=== PATIENT | female | born 1960 | race Caucasian/White ===

== ENCOUNTER → 2017-01-20 | Outpatient (CLI) | payer OTHER ==
--- NOTE | 2017-01-20 18:14 | XR ---
EXAMINATION TYPE: XR chest 2V DATE OF EXAM: 01/20/2017 6:04 PM COMPARISON: NONE HISTORY: Chest pain TECHNIQUE: Frontal and lateral views of the chest are obtained. FINDINGS: Heart and mediastinum are within normal limits. Lungs are clear. Costophrenic angles are c lear. There are no hilar masses. The bony thorax appears intact. IMPRESSION: No active cardiopulmonary disease.
== END ==
LOC: RADXRMAIN 17:49
PROVIDERS: ATTEND Family Medicine
DX: M94.0 Chondrocostal junction syndrome [Tietze] (principal)
CPT/HCPCS: 71020

== ENCOUNTER → 2017-01-22 | Outpatient (CLI) | payer OTHER ==
--- NOTE | 2017-01-23 08:18 | MM ---
Reason for exam: follow-up at short interval from prior study. Last mammogram was performed 6 months ago. History: Patient is postmenopausal. Family history of breast cancer in sister at age 56. Benign left breast aspiration of the left breast, February 10, 2013. Physical Findings: Nurse did not find any significant physical abnormalities on exam. MG 3D Diag Mammo W/Cad RT CC and MLO view(s) were taken of the right breast. Prior study comparison: July 16, 2016, bilateral MG 3d screening mammo w/cad. March 10, 2015, bilateral MG screening mammo w CAD. The breast tissue is heterogeneously dense. This may lower the sensitivity of mammography. Benign calcifications. Nodule persists in the upper outer quadrant, 5.7cm from nipple. No significant new findings when compared with previous films. These results were verbally communicated with the patient and result sheet given to the patient on 01/22/17. ASSESSMENT: Incomplete: need additional imaging evaluation, BI-RAD 0 RECOMMENDATION: Ultrasound of the right breast.
--- NOTE | 2017-01-23 08:20 | USB ---
Reason for exam: additional evaluation requested from abnormal screening. History: Patient is postmenopausal. Family history of breast cancer in sister at age 56. Benign left breast aspiration of the left breast, February 10, 2013. US Breast Limited RT Right breast ultrasound demonstrates a 3mm oval, cystic lesion at 9 o'clock, 4.6cm from nipple and a 3mm oval, cystic lesion at 10 o'clock, 4.9cm from nipple. These results were verbally communicated with the patient and result sheet given to the patient on 01/22/17. ASSESSMENT: Benign, BI-RAD 2 RECOMMENDATION: Return to routine screening mammogram schedule for both breasts. Back on schedule for July 2017.
== END | disposition home or self-care (01) ==
LOC: RADMAMWWP 14:00
PROVIDERS: ATTEND Family Medicine
DX: R92.2 Inconclusive mammogram (principal); R92.8 Other abnormal and inconclusive findings on diagnostic imaging of breast
CPT/HCPCS: 76642; G0206; G0279

== ENCOUNTER → 2017-02-13 | Outpatient (CLI) | payer OTHER | END | disposition home or self-care (01) | LOC: RADECHMAIN 12:14 | PROVIDERS: ATTEND Family Medicine | DX: R00.1 Bradycardia, unspecified (principal); R00.0 Tachycardia, unspecified | CPT/HCPCS: 36415; 80053; 82607; 84443; 93225; 93226 ==

== ENCOUNTER → 2017-02-13 | Outpatient (CLI) | payer OTHER ==
[2017-02-13 13:24] LABS: ALT 31 U/L (9-52); AST 23 U/L (14-36); Alkaline Phosphatase 64 U/L (38-126); Anion Gap 11 mmol/L; Blood Urea Nitrogen 8 mg/dL (7-17); Calcium 9.1 mg/dL (8.4-10.2); Carbon Dioxide 28 mmol/L (22-30); Chloride 96 mmol/L (98-107); Glucose 101 mg/dL (74-99); Non-African American GFR(MDRD) >60 (>60 ml/min/1.73 sqM); Potassium 3.6 mmol/L (3.5-5.1); Sodium 135 mmol/L (137-145); Total Bilirubin 0.8 mg/dL (0.2-1.3); Total Protein 7.4 g/dL (6.3-8.2)
[2017-02-13 14:16] LABS: Vitamin B12 692 pg/mL (239-931)
== END | disposition home or self-care (01) ==
LOC: LABWHC1 12:44
PROVIDERS: ATTEND Internal Medicine Endocrinology, Diabetes & Metabolism
DX: E03.8 Other specified hypothyroidism (principal); E03.9 Hypothyroidism, unspecified; R53.83 Other fatigue
CPT/HCPCS: 36415; 80053; 82607; 84443

== ENCOUNTER → 2017-07-08 | Outpatient (CLI) | payer OTHER | END | disposition home or self-care (01) | LOC: LABWHC1 14:23 | PROVIDERS: ATTEND Internal Medicine Endocrinology, Diabetes & Metabolism | DX: E03.8 Other specified hypothyroidism (principal) | CPT/HCPCS: 36415; 84443 ==

== ENCOUNTER → 2017-09-30 | Outpatient (CLI) | payer OTHER ==
--- NOTE | 2017-09-30 22:06 | WWHP ---
[facility] - HISTORY AND PHYSICAL DATE OF DICTATION: 09/30/2017 CHIEF COMPLAINT: The patient is here for her routine gynecologic exam and mammogram. HPI: This is a 57-year-old, G5, P3-0-2-3 with an LMP of 1995. She is status post vaginal hysterectomy for benign reasons. The patient has occasional hot flashes. She is complaining of some sinus drainage over the last 5 days and this has become gold colored and has an odd taste when it drains down the back of her throat. She also coughed up this gold colored phlegm. She has not had any fever. She is without gynecologic complaints. PAST MEDICAL HISTORY: Hypothyroidism, anxiety, and chronic hypertension. MEDICATIONS: 1. Synthroid 50 mcg daily. 2. Zyrtec 1 daily p.r.n. 3. Enalapril with hydrochlorothiazide 10/25 1 b.i.d. 4. K-Dur 20 mEq b.i.d. 5. Nexium 40 mg daily. 6. Zocor 20 mg daily. 7. Zantac 150 mg b.i.d. 8. Vitamin D3 5000 units daily. 9. Vitamin C 500 mg daily. 10.Vitamin E 400 units daily. 11.Calcium 1 daily. 12.Multivitamin 1 daily. 13.Probiotics 1 daily. ALLERGIES: ZYBAN. PAST SURGICAL HISTORY: Hemorrhoid surgery x3 in the past, colonoscopy 2004 and 2015, thyroidectomy in 1990, vaginal hysterectomy in 1995, cholecystectomy in 1991 and tubal ligation 1985, multiple D and Cs between 1985 and 1991. PAST ETL DEVELOPER HISTORY: She is status post vaginal hysterectomy for benign reasons. She has no history of STDs. SOCIAL HISTORY: She smokes about 15 cigarettes per day and has about 3 alcohol containing drinks per day. She denies drug use. 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 FAMILY HISTORY: Father had colon cancer. Mother had uterine cancer and mother also had UT and hypertension. Sister has heart failure. REVIEW OF SYSTEMS: She has lost about 8 pounds over the last year. RESPIRATORY: She had a sinus infection with sinus drainage and cough as above. She denies cardiac or GI problems. PHYSICAL EXAM: Blood pressure 135/83, height 5 feet 6 inches, weight 160 pounds, temperature 98.3, pulse 82. This is a well-developed, well-nourished, white female, who is alert and oriented x3, in no acute distress. HEENT reveals some erythematous nasal mucosa. There is minimal tenderness over the maxillary sinuses. NECK: Supple without mass or thyromegaly. Chest. LUNGS: Clear to auscultation. HEART: Regular rate and rhythm. Breasts are without mass or discharge. Axillary exam is negative for adenopathy. Back negative for CVA tenderness. ABDOMEN: Soft, nontender, without palpable masses. Pelvic exam external genitalia reveals mild atrophy without lesions. Vagina reveals mild atrophy without lesions. There is no evidence of prolapse. Bimanual exam is negative for mass or tenderness. Rectovaginal exam is negative for mass or tenderness and is negative for occult blood. There are visible hemorrhoids which do not appear inflamed. EXTREMITIES: Nontender. IMPRESSION: 1. 57-year-old menopausal female, status post vaginal hysterectomy for benign reasons with normal gynecologic exam. 2. Sinusitis, probable bacterial. PLAN: 1. Pap smears have been discontinued. 2. Self breast examination was discussed. 3. Mammogram will be done today. 4. She will take Keflex 500 mg b.i.d. x7 days. I have also recommended she try to quit smoking. If her sinusitis symptoms do not improve she was instructed to follow up with her primary care physician. 5. She will return in one year. MMODL / IJN: [id number] /
--- NOTE | 2017-10-03 09:29 | MM ---
Reason for exam: screening (asymptomatic). Last mammogram was performed 8 months ago. History: Patient is postmenopausal. Family history of breast cancer in sister at age 56. Benign left breast aspiration of the left breast, February 10, 2013. Physical Findings: A clinical breast exam by your physician is recommended on an annual basis and results should be correlated with mammographic findings. MG 3D Screening Mammo W/Cad Bilateral CC and MLO view(s) were taken. Prior study comparison: January 22, 2017, right breast MG 3d diag mammo w/cad RT. July 16, 2016, bilateral MG 3d screening mammo w/cad. There are scattered fibroglandular densities. Finding #1: There is a 5 mm round mass in the outer quadrant, anterior, subareolar position. Finding #2: There are typically benign round calcifications in both breasts. Previous mammotome biopsy in the left breast. ASSESSMENT: Incomplete: need additional imaging evaluation, BI-RAD 0 RECOMMENDATION: Special view mammogram of the left breast. If lesion persists on supplemental views, image directed ultrasound is recommended. [facility] will attempt to contact patient to return for supplemental views and ultrasound if indicated.
== END | disposition home or self-care (01) ==
LOC: WWCWWP 13:21
PROVIDERS: ATTEND Obstetrics & Gynecology
DX: Z12.31 Encounter for screening mammogram for malignant neoplasm of breast (principal)
CPT/HCPCS: 77063; G0202

== ENCOUNTER → 2017-10-08 | Outpatient (CLI) | payer OTHER ==
--- NOTE | 2017-10-08 14:45 | MM ---
Reason for exam: additional evaluation requested from abnormal screening. Last mammogram was performed less than 1 month ago. History: Family history of breast cancer in sister at age 56. Benign left breast aspiration of the left breast, February 10, 2013. Physical Findings: Nurse did not find any significant physical abnormalities on exam. MG 3D Work Up W/Cad LT Spot compression CC, spot compression MLO, and LM view(s) were taken of the left breast. Prior study comparison: September 30, 2017, bilateral MG 3d screening mammo w/cad. January 22, 2017, right breast MG 3d diag mammo w/cad RT. January 22, 2017, right breast US breast limited RT. July 16, 2016, bilateral MG 3d screening mammo w/cad. March 10, 2015, bilateral MG screening mammo w CAD. Finding: There are typically benign vascular, round calcifications in the left breast. Previous mammotome biopsy in the left breast. No discrete abnormality persists on additional views. These results were verbally communicated with the patient and result sheet given to the patient on 10/08/17. ASSESSMENT: Benign, BI-RAD 2 RECOMMENDATION: Return to routine screening mammogram schedule for both breasts.
== END | disposition home or self-care (01) ==
LOC: RADMAMWWP 13:34
PROVIDERS: ATTEND Obstetrics & Gynecology
DX: R92.8 Other abnormal and inconclusive findings on diagnostic imaging of breast (principal)
CPT/HCPCS: 77065; G0279

== ENCOUNTER → 2018-04-27 | Outpatient (CLI) | payer OTHER ==
--- NOTE | 2018-04-27 15:12 | CT ---
EXAMINATION TYPE: CT sinus wo con DATE OF EXAM: 04/27/2018 COMPARISON: None HISTORY: frequent ear and sinus infections CT DLP: 583.7 mGycm CONTRAST: None The paranasal sinuses are examined in the axial plane at 2 mm thick sections. Reconstructed images i n the coronal plane were obtained. There is dental amalgam scatter artifact There is some minimal inferior right maxillary mucosal thickening. Maxillary sinuses are otherwise cl ear. The ethmoid air cells are clear. The sphenoid sinuses are clear. The frontal sinuses are pato r. The septum is evaluated. There is septal deviation to the left. Left septal spur is present.. The ostiomeatal units are patent. Portions of the mastoid air cells within the tchej-co-nhns are clear. IMPRESSIONS: 1. Left septal deviation. 2. Inferior right maxillary mucosal thickening to a mild degree.
== END | disposition home or self-care (01) ==
LOC: RADCTMAIN 13:41
PROVIDERS: ATTEND Family Medicine
DX: J34.2 Deviated nasal septum (principal); J34.89 Other specified disorders of nose and nasal sinuses; J32.9 Chronic sinusitis, unspecified
CPT/HCPCS: 70486

== ENCOUNTER → 2018-07-27 | Outpatient (CLI) | payer OTHER ==
[2018-07-27 14:57] LABS: HCT 43.5 % (34.0-46.0); HGB 14.7 gm/dL (11.4-16.0); MCHC 33.7 g/dL (31.0-37.0); MCV 100.8 fL (80.0-100.0); Mean Platelet Volume 6.5; Platelet Count 245 k/uL (150-450); RBC 4.32 m/uL (3.80-5.40); RDW 12.3 % (11.5-15.5)
[2018-07-28 05:22] LABS: Iron Saturation 28.74 (12.00-45.00)
== END | disposition home or self-care (01) ==
LOC: LABWHC1 13:31
PROVIDERS: ATTEND Internal Medicine Endocrinology, Diabetes & Metabolism
DX: E03.9 Hypothyroidism, unspecified (principal); R53.83 Other fatigue
CPT/HCPCS: 36415; 82728; 83540; 83550; 84443; 85027

== ENCOUNTER → 2019-05-07 | Outpatient (CLI) | payer OTHER ==
--- NOTE | 2019-05-09 22:24 | CTL ---
EXAMINATION TYPE: CT Low Dose Lung DATE OF EXAM ORDERED: 05/07/2019 HISTORY: Personal history of tobacco use. Lung cancer screening CT DLP: 96.[address] CTDI: 2.8 mGy Automated exposure control for dose reduction was used. SCREENING VISIT: Initial study COMPARISON: None. TECHNIQUE: Low dose computed tomography scan was performed through the chest at 1 mm thick sections a nd reconstructed images in the coronal plane at [address] DIAGNOSTIC QUALITY: Satisfactory FINDINGS: LUNG NODULES: Present, detailed below: A 5 x 4 mm left lower lobe nodule noted axial image 211. The 3 mm subpleural nodule left lower lobe axial image 225 Incidental calcified 3 mm subpleural nodule left upper lobe axial image 81 LUNGS: COPD: Severity: Mild to moderate upper lung Fibrosis: Severity: Minimal Lymph nodes: None Other findings: None BILATERAL PLEURAL SPACE: Effusion: None Calcification: None Thickening: None Pneumothorax: None HEART: Heart Size: Normal Coronary calcification: Moderate Pericardial effusion: None OTHER FINDINGS: Upper abdomen: Cholecystectomy clips. A few simple-appearing thin-walled cysts are scattered througho ut the visualized liver Bony thorax: Mild multilevel spurring. Slight scoliotic curvature. Supraclavicular region: None. Other: None. IMPRESSION: Few scattered small nodules measuring up to 5 x [address] CHEST RECOMMENDATION: Annual low-dose lung screening CT CT LUNG RAD: Lung-Rad 2 Benign Appearance or Behavior
== END | disposition home or self-care (01) ==
LOC: RADCTMAIN 16:43
PROVIDERS: ATTEND Physician Assistant
DX: R91.8 Other nonspecific abnormal finding of lung field (principal); Z87.891 Personal history of nicotine dependence

== ENCOUNTER → 2019-05-13 | Outpatient (CLI) | payer OTHER ==
--- NOTE | 2019-05-17 09:56 | MM ---
Reason for exam: screening (asymptomatic). Last mammogram was performed 1 year and 7 months ago. History: Family history of breast cancer in sister at age 56. Benign left breast aspiration of the left breast, February 10, 2013. Physical Findings: A clinical breast exam by your physician is recommended on an annual basis and results should be correlated with mammographic findings. MG 3D Screening Mammo W/Cad Bilateral CC and MLO view(s) were taken. Prior study comparison: October 08, 2017, left breast MG 3d work up w/cad LT. September 30, 2017, bilateral MG 3d screening mammo w/cad. There are scattered fibroglandular densities. Benign appearing bilateral calcifications. No suspicious abnormality. Left biopsy marker noted. No significant changes when compared with prior studies. ASSESSMENT: Benign, BI-RAD 2 RECOMMENDATION: Routine screening mammogram of both breasts in 1 year.
== END | disposition home or self-care (01) ==
LOC: RADMAMWWP 14:27
PROVIDERS: ATTEND Family Medicine
DX: Z12.31 Encounter for screening mammogram for malignant neoplasm of breast (principal)
CPT/HCPCS: 77063; 77067

== ENCOUNTER → 2019-07-15 | Outpatient (CLI) | payer OTHER | END | disposition home or self-care (01) | LOC: LABWHC1 14:08 | PROVIDERS: ATTEND Otolaryngology | DX: J30.89 Other allergic rhinitis (principal) | CPT/HCPCS: 36415; 86001 ==

== ENCOUNTER → 2020-05-29 | Outpatient (CLI) | payer BC ==
--- NOTE | 2020-05-30 10:12 | MM ---
Reason for exam: screening (asymptomatic). Last mammogram was performed 1 year and 1 month ago. History: Family history of breast cancer in sister at age 56. Benign left breast aspiration of the left breast, February 10, 2013. Physical Findings: A clinical breast exam by your physician is recommended on an annual basis and results should be correlated with mammographic findings. MG 3D Screening Mammo W/Cad Bilateral CC and MLO view(s) were taken. Prior study comparison: May 13, 2019, bilateral MG 3d screening mammo w/cad. October 08, 2017, left breast MG 3d work up w/cad LT. There are scattered fibroglandular densities. Stable benign calcifications. There is chronic nodularity bilaterally. No significant changes when compared with prior studies. ASSESSMENT: Benign, BI-RAD 2 RECOMMENDATION: Routine screening mammogram of both breasts in 1 year.
== END | disposition home or self-care (01) ==
LOC: RADMAMWWP 12:11
PROVIDERS: ATTEND Family Medicine
DX: Z12.31 Encounter for screening mammogram for malignant neoplasm of breast (principal)
CPT/HCPCS: 77063; 77067

== ENCOUNTER → 2020-07-28 | Outpatient (CLI) | payer BC ==
--- NOTE | 2020-07-29 11:58 | US ---
EXAMINATION TYPE: US transvaginal DATE OF EXAM: 07/28/2020 COMPARISON: NONE CLINICAL HISTORY: N81.6 HERNIATION OF RECTUM INTO VAGINA. TECHNIQUE: Transvaginal (TV). Date of LMP: hysterectomy 1993 EXAM MEASUREMENTS: Uterus: surgically absent Endometrial Stripe: surgically absent Right Ovary: not visualized, obscured by bowel Left Ovary: not visualized, obscured by bowel 1. Uterus: Surgically absent 2. Endometrium: Surgically absent 3. Right Ovary: not visualized, obscured by bowel 4. Left Ovary: not visualized, obscured by bowel 5. Bilateral Adnexa: wnl 6. Posterior cul-de-sac: wnl IMPRESSION: 1. No evidence of significant bulging into the vaginal wall. A more sensitive exam for rectocele is M RI proctography if there is persistent clinical concern. 2. Nonvisualization of the bilateral ovaries. 3. No free fluid.
== END | disposition home or self-care (01) ==
LOC: RADUSWWP 16:21
PROVIDERS: ATTEND Internal Medicine
DX: N81.6 Rectocele (principal)
CPT/HCPCS: 76830

== ENCOUNTER → 2020-08-08 | Outpatient (CLI) | payer BC ==
[2020-08-08 15:01] VITALS: BP 154/91; PULSE 71; RESP 18; TEMP 98.3
--- NOTE | 2020-08-08 17:52 | P.HPOB ---
History of Present Illness H&P Date: 08/08/20 Chief Complaint: The patient is here for her routine gynecologic exam. This is a 60-year-old 023 with an LMP of 1995. She is status post vaginal hysterectomy for benign reasons. The patient states she was recently treated for a urinary tract infection by her PCP. She was having urinary frequency, dysuria and pressure in the area of her bladder. She also is experiencing some left lower quadrant pressure and discomfort. She also noticed some sharp pains when she wiped. She was seen by Dr. Lincoln's physician pet care assistant who thought she might have some type of prolapse. Pelvic ultrasound was done on 07/28/2020 which showed no adnexal masses and could not identify any discrete vaginal prolapse. After being treated with an antibiotic for a suspected urinary tract infections she noted many of her symptoms did improve including the urinary frequency and dysuria and sharp pains when wiping. However, she was told that the urine testing did not confirm a UTI. She occasionally feels the need to void and pass gas when she eats certain types of foods such as foods high in gluten. Review of Systems She thinks she has gained about 25 pounds during the Covid pandemic. She denies respiratory or cardiac problems. GI: Occasional loose stools and occasional constipation. Neurologic: She has noticed occasional left thigh paresthesias. Past Medical History Past Medical History: GERD/Reflux, Hypertension, Thyroid Disorder Additional Past Medical History / Comment(s): Seasonal ALLERGIES and hypothyroidism. 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 History of Any Multi-Drug Resistant Organisms: None Reported Past Surgical History: Cholecystectomy, Hysterectomy, Tubal Ligation Additional Past Surgical History / Comment(s): Multiple D&Cs, vaginal hysterectomy 1995, hemorrhoid surgery, thyroidectomy. Colonoscopy 2018(next after 2yr). 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 - Past Family History Father Family Medical History: Cancer Additional Family Medical History / Comment(s): Colon cancer. Mother Family Medical History: Cancer, Hypertension, Myocardial Infarction ([place]) Additional Family Medical History / Comment(s): Uterine cancer. Sister(s) Additional Family Medical History / Comment(s): Heart disease. Medications and Allergies Home Medications Medication Instructions Recorded Confirmed Type Aspirin 81 mg PO DAILY 08/08/20 08/08/20 History Cetirizine HCl [Zyrtec] 10 mg PO DAILY 08/08/20 08/08/20 History Enalapril/Hydrochlorothiazide 1 tab PO DAILY 08/08/20 08/08/20 History [Enalapril/Hydrochlorothiazide 10-25 mg Tablet] Levothyroxine Sodium [Synthroid] 50 mcg PO DAILY 08/08/20 08/08/20 History Meloxicam [Mobic] 7.5 mg PO BID 08/08/20 08/08/20 History Montelukast [Singulair] 10 mg PO DAILY 08/08/20 08/08/20 History Omeprazole 20 mg PO DAILY 08/08/20 08/08/20 History Potassium Chloride ER [K-Dur 20] 20 meq PO BID 08/08/20 08/08/20 History Rosuvastatin [Crestor] 10 mg PO HS 08/08/20 08/08/20 History Varenicline [Chantix Starter Pack] 0.5 mg PO DIRECTED 08/08/20 08/08/20 History Verapamil HCl [Verapamil ER] 120 mg PO DAILY 08/08/20 08/08/20 History Allergies Allergy/AdvReac Type Severity Reaction Status Date / Time egg Allergy Nausea Unverified 08/08/20 15:03 adhesive AdvReac Rash/Hives Unverified 08/08/20 15:03 bupropion [From Zyban] AdvReac Rash/Hives Unverified 08/08/20 15:03 corn AdvReac Nausea Unverified 08/08/20 15:03 Milk Containing Products AdvReac Diarrhea Unverified 08/08/20 15:03 [Dairy] wheat AdvReac Unknown Unverified 08/08/20 15:03 Exam Vital Signs Temp Pulse Resp BP Pulse Ox 08/08/20 14:54 98.3 F 71 18 154/91 98 Intake and Output 08/08/20 08/08/20 08/08/20 06:59 14:59 22:59 Other: Weight 87.09 kg Height 5 feet 5 inches, weight 192 pounds, BMI 32.0. This is a well-developed well-nourished white female who is alert and oriented times 3 in no acute distress. HEENT: Within normal limits. NECK: Supple without mass or thyromegaly. CHEST AND LUNGS: Clear to auscultation. HEART: Regular rate and rhythm. BREASTS: Are without mass or discharge. AXILLARY EXAM: Negative for adenopathy. BACK: Negative for CVA tenderness. ABDOMEN: Soft, nontender, without palpable masses. PELVIC EXAM: External genitalia appears normal with mild atrophy. Vagina mucosa appears normal with mild atrophy. There is a grade 2 rectocele. With Valsalva a grade 2 enterocele is also noted. There is no significant cystocele. The vaginal cuff feels well supported. Bimanual examination is negative for mass or tenderness. RECTAL EXAM: Rectovaginal exam is negative for mass or tenderness and is negative for occult blood. The rectal exam does confirm a grade 2 rectocele. EXTREMITIES: Nontender. IMPRESSION: 1. 60-year-old menopausal female status post vaginal hysterectomy for benign reasons with grade 2 rectocele and grade 2 enterocele. 2. Probable urinary tract infection that was treated by her PCP with improvement of symptoms. 3. Recent pelvic symptoms including pelvic pressure and left lower quadrant discomfort which may or may not be related to the rectocele and enterocele. These symptoms may have been related to her urinary tract infection. 4. Recent negative pelvic ultrasound. PLAN: 1. Pap smears have been discontinued. 2. Self breast awareness was discussed with the patient. 3. Screening mammogram was done on 05/29/2020 and was benign. 4. We have had a long discussion regarding the rectocele and enterocele. At this time do not feel surgical management is warranted. She understands that this may or may not have been related to the pelvic symptoms that she was describing. I have recommended that she avoid holding stool or urine longer than necessary. We have also discussed negative Valsalva exercises which she can try if she has pelvic pressure or pelvic discomfort. The ACOG FA Q handout on pelvic prolapse was given to the patient. 5. She was advised to return in one year for her annual well woman exam and as needed.
== END | disposition home or self-care (01) ==
LOC: WWCWWP 14:45
PROVIDERS: ATTEND Obstetrics & Gynecology
DX: Z53.9 Procedure and treatment not carried out, unspecified reason (principal)

== ENCOUNTER → 2021-08-07 | Outpatient (CLI) | payer BC ==
[2021-08-07 11:04] VITALS: BP 127/74; PULSE 80; RESP 16; TEMP 98.1
--- NOTE | 2021-08-07 16:28 | P.HPOB ---
History of Present Illness H&P Date: 08/07/21 Chief Complaint: The patient is here for her routine gynecologic exam. This is a 61-year-old with an LMP of 1995. The patient is status post vaginal hysterectomy for benign reasons. The patient states she has been treated for multiple urinary tract infections during the past year. Urine testing does not always confirm a urinary tract infection. Most recently she started having some discomfort with urination 3 days ago. She also noticed left lower quadrant and left pelvic discomfort. She feels like she needs to push on her left lower quadrant when she voids because she knows it will hurt. She saw her PCP yesterday for this and urine testing was done to check for infection. The results are pending. She was sent for a CT scan at [facility] yesterday. She was told that the CT scan was negative. Review of Systems She has lost about 33 pounds over the past year with diet and exercise. She has been using the [employer] weight loss program. She denies respiratory or cardiac problems. GI: Occasional IBS symptoms. She is seeing Dr. Johnson, the GI specialist for this. Breasts: She states she has slight infrequent bilateral nipple discharge without blood since she breast-fed her last baby 30+ years ago. She can notice this without nipple stimulation. Only small amounts of nipple discharge are noted by the patient. Past Medical History Past Medical History: GERD/Reflux, Hypertension, Thyroid Disorder Additional Past Medical History / Comment(s): Seasonal ALLERGIES and hypothyroidism. 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 History of Any Multi-Drug Resistant Organisms: None Reported Past Surgical History: Cholecystectomy, Hysterectomy, Tubal Ligation Additional Past Surgical History / Comment(s): Multiple D&Cs, vaginal hysterectomy 1995, hemorrhoid surgery, thyroidectomy. Colonoscopy 2018(next after 2yr). 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 - Past Family History Father Family Medical History: Cancer Additional Family Medical History / Comment(s): Colon cancer. Mother Family Medical History: Cancer, Hypertension, Myocardial Infarction ([place]) Additional Family Medical History / Comment(s): Uterine cancer. Sister(s) Additional Family Medical History / Comment(s): Heart disease. Medications and Allergies Home Medications Medication Instructions Recorded Confirmed Type Aspirin 81 mg PO DAILY 08/08/20 08/07/21 History Cetirizine HCl [Zyrtec] 10 mg PO DAILY 08/08/20 08/07/21 History Enalapril/Hydrochlorothiazide 1 tab PO DAILY 08/08/20 08/07/21 History [Enalapril/Hydrochlorothiazide 10-25 mg Tablet] Levothyroxine Sodium [Synthroid] 50 mcg PO DAILY 08/08/20 08/07/21 History Meloxicam [Mobic] 7.5 mg PO BID 08/08/20 08/07/21 History Montelukast [Singulair] 10 mg PO DAILY 08/08/20 08/07/21 History Omeprazole 20 mg PO DAILY 08/08/20 08/07/21 History Potassium Chloride ER [K-Dur 20] 20 meq PO BID 08/08/20 08/07/21 History Rosuvastatin [Crestor] 10 mg PO HS 08/08/20 08/07/21 History Varenicline [Chantix Starter Pack] 0.5 mg PO DIRECTED 08/08/20 08/07/21 History Verapamil HCl [Verapamil ER] 120 mg PO DAILY 08/08/20 08/07/21 History Allergies Allergy/AdvReac Type Severity Reaction Status Date / Time egg Allergy Nausea Unverified 08/07/21 10:53 adhesive AdvReac Rash/Hives Unverified 08/07/21 10:53 bupropion [From Zyban] AdvReac Rash/Hives Unverified 08/07/21 10:53 corn AdvReac Nausea Unverified 08/07/21 10:53 Milk Containing Products AdvReac Diarrhea Unverified 08/07/21 10:53 [Dairy] wheat AdvReac Unknown Unverified 08/07/21 10:53 Exam Vital Signs Temp Pulse Resp BP Pulse Ox 08/07/21 10:56 98.1 F 80 16 127/74 97 Intake and Output 08/07/21 08/07/21 08/07/21 06:59 14:59 22:59 Other: Weight 72.121 kg Height 5 feet 5 inches, weight 159 pounds, BMI 26.5. This is a well-developed well-nourished white female who is alert and oriented times 3 in no acute distress. HEENT: Within normal limits. NECK: Supple without mass or thyromegaly. CHEST AND LUNGS: Clear to auscultation. HEART: Regular rate and rhythm. BREASTS: Are without mass or discharge. AXILLARY EXAM: Negative for adenopathy. BACK: Negative for CVA tenderness. ABDOMEN: Soft, nontender, without palpable masses. PELVIC EXAM: External genitalia appears normal mild atrophy. In the left groin area, there is evidence of a resolving boil measuring approximately 2 x 1 cm. The patient states she had drainage from this last week and seems to be resolving. Vagina appears normal with mild atrophy. There is a stable grade 2 rectocele which is unchanged from her previous exam. On exam today, there is no evidence of enterocele. Bimanual examination is negative for mass or tenderness. RECTAL EXAM: Rectovaginal exam is negative for mass or tenderness and is negative for occult blood. EXTREMITIES: Nontender. IMPRESSION: 1. 61-year-old menopausal female status post vaginal hysterectomy for benign reasons with stable grade 2 rectocele. 2. Left lower quadrant and left pelvic discomfort especially with voiding. There are no significant physical findings on pelvic exam. This does not sound typical for a UTI. Differential diagnosis included diverticular disease, adnexal mass, inguinal hernia, pelvic adhesions or other GI disorder. 3. Small chronic galactorrhea with no significant physical findings at this time. PLAN: 1. Pap smears have been discontinued. 2. Self breast awareness was discussed with the patient. We have also discussed symptoms associated with inflammatory breast cancer. 3. Screening mammogram is scheduled for 09/25/2021. The order slip was given to the patient for this. 4. The patient will have the CT scan done at [facility] yesterday sent to me. She was told the CT scan was unremarkable and if this is the case, pelvic ultrasound would probably not give any additional information. 5. Urine testing is pending from her primary care physician's office and this was given yesterday. She will follow-up with that office for results. Urine testing will not be repeated here. 6. She states she is due for a colonoscopy and will be seen her GI doctor for this. 7. The patient states she is having slight nipple discharge infrequently even without nipple stimulation. She denies blood in the discharge. She states she has noticed this for 30 years since she breast fed her last child. Prolactin level will be drawn. If this is normal and the mammogram is unremarkable, no additional workup will be needed unless she is noticing an increase in nipple discharge or changes such as blood in the discharge. 8. She was advised to return in one year for her annual well woman exam and as needed.
== END ==
LOC: WWCWWP 10:44
PROVIDERS: ATTEND Obstetrics & Gynecology
DX: Z01.419 Encounter for gynecological examination (general) (routine) without abnormal findings (principal); R10.84 Generalized abdominal pain; E03.9 Hypothyroidism, unspecified; F17.210 Nicotine dependence, cigarettes, uncomplicated; I10 Essential (primary) hypertension; N64.3 Galactorrhea not associated with childbirth; F41.9 Anxiety disorder, unspecified; K21.9 Gastro-esophageal reflux disease without esophagitis; Z79.899 Other long term (current) drug therapy; Z91.012 Allergy to eggs; Z91.048 Other nonmedicinal substance allergy status; Z91.011 Allergy to milk products; Z91.018 Allergy to other foods; Z90.711 Acquired absence of uterus with remaining cervical stump
CPT/HCPCS: 84146

== ENCOUNTER → 2021-09-25 | Outpatient (CLI) | payer BC ==
--- NOTE | 2021-10-01 11:19 | MM ---
Reason for exam: screening (asymptomatic). Last mammogram was performed 1 year and 4 months ago. History: Family history of breast cancer in sister at age 56. Benign left breast aspiration of the left breast, February 10, 2013. Physical Findings: A clinical breast exam by your physician is recommended on an annual basis and results should be correlated with mammographic findings. MG 3D Screening Mammo W/Cad Bilateral CC and MLO view(s) were taken. Prior study comparison: May 29, 2020, bilateral MG 3d screening mammo w/cad. May 13, 2019, bilateral MG 3d screening mammo w/cad. There are scattered fibroglandular densities. Previous mammotome biopsy in the left breast. There is chronic nodularity in the right breast. Benign oil cyst calcifications on the left. No significant changes when compared with prior studies. ASSESSMENT: Benign, BI-RAD 2 RECOMMENDATION: Routine screening mammogram of both breasts in 1 year.
== END | disposition home or self-care (01) ==
LOC: RADMAMWWP 10:57
PROVIDERS: ATTEND Family Medicine
DX: Z12.31 Encounter for screening mammogram for malignant neoplasm of breast (principal); Z80.3 Family history of malignant neoplasm of breast
CPT/HCPCS: 77063; 77067

== ENCOUNTER → 2022-07-18 | Outpatient (CLI) | payer BC ==
[2022-07-18 11:13] LABS: ALT 16 U/L (8-44); AST 19 U/L (13-35); Chol/HDL Ratio 2.38 Ratio; LDL Cholesterol,Calculated 76.2 mg/dL (0.0-131.0); VLDL Calculation 11.28 mg/dL (5.00-40.00)
== END | disposition home or self-care (01) ==
LOC: LABWHC1 07:52
PROVIDERS: ATTEND Internal Medicine Interventional Cardiology
DX: E78.2 Mixed hyperlipidemia (principal)
CPT/HCPCS: 36415; 80061; 84450; 84460

== ENCOUNTER → 2022-10-01 | Outpatient (CLI) | payer BC ==
--- NOTE | 2022-10-01 16:56 | US ---
EXAMINATION TYPE: US axilla LT DATE OF EXAM: 10/01/2022 COMPARISON: NONE CLINICAL HISTORY: R22.2 LOCALIZED SWELLING, MASS AND LUMP, TRUNK. Patient feels tiny lump in her left arm pit x 6 months that is painful. Hx of 2 cysts drained from her left arm pit 27 years ago. Technique: Grayscale imaging of the area of patient's concern in the left axilla. FINDINGS:. At patient's area of concern within the left axilla, small hypoechoic area seen superficially: 0.3 x 0.2 x 0.3 cm with indistinct borders. Inferior to patient's area of concern, within the left axilla, there appears to be a hypoechoic area with hyperechoic center measuring 1.5 x 1.2 x 0.7 cm most consistent with lymph node. No organizing fluid collection or mass. IMPRESSION: Patient concern demonstrates a small indistinct lesion which could represent hyperdense cyst versus m asslike fat. Inferior to the palpable abnormality correlates with suspicious appearing lymph node. If there remains clinical concern consider short-term follow-up.
== END | disposition home or self-care (01) ==
LOC: RADUSWWP 16:17
PROVIDERS: ATTEND Family Medicine
DX: R22.2 Localized swelling, mass and lump, trunk (principal)

== ENCOUNTER → 2023-01-14 | Outpatient (CLI) | payer BC ==
[2023-01-14 15:26] VITALS: BP 152/77; PULSE 67; RESP 17; TEMP 97.9
--- NOTE | 2023-01-14 16:28 | P.HPOB ---
History of Present Illness H&P Date: 01/14/23 Chief Complaint: The patient is here for her routine gynecologic exam and ma mmogram. This is a 62-year-old 0-3 with an LMP of 1995. She is status post vaginal hysterectomy for benign reasons. She has a known grade 2 rectocele. She states occasionally it is difficult to move her bowels especially when the stool is harder. She denies any significant bulging outside of the vagina. She is otherwise without gynecologic complaints. Review of Systems The patient has lost 13 pounds over the last year. Her weight loss has been intentional and has been with diet and exercise. She denies respiratory, cardiac, or G.I. problems. Past Medical History Past Medical History: GERD/Reflux, Hypertension, Thyroid Disorder Additional Past Medical History / Comment(s): Seasonal ALLERGIES and hypothyroidism. 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 History of Any Multi-Drug Resistant Organisms: None Reported Past Surgical History: Cholecystectomy, Hysterectomy, Tubal Ligation Additional Past Surgical History / Comment(s): Multiple D&Cs, vaginal hysterectomy 1995, hemorrhoid surgery, thyroidectomy. Colonoscopy 2018(next after 2yr). 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 - Past Family History Father Family Medical History: Cancer Additional Family Medical History / Comment(s): Colon cancer. Mother Family Medical History: Cancer, Hypertension, Myocardial Infarction ([place]) Additional Family Medical History / Comment(s): Uterine cancer. Sister(s) Additional Family Medical History / Comment(s): Heart disease. Medications and Allergies Home Medications Medication Instructions Recorded Confirmed Type Aspirin 81 mg PO DAILY 08/08/20 01/14/23 History Cetirizine HCl [Zyrtec] 10 mg PO DAILY 08/08/20 01/14/23 History Enalapril/Hydrochlorothiazide 1 tab PO DAILY 08/08/20 01/14/23 History [Enalapril/Hydrochlorothiazide 10-25 mg Tablet] Levothyroxine Sodium [Synthroid] 50 mcg PO DAILY 08/08/20 01/14/23 History Meloxicam [Mobic] 7.5 mg PO BID 08/08/20 01/14/23 History Montelukast [Singulair] 10 mg PO DAILY 08/08/20 01/14/23 History Omeprazole 20 mg PO DAILY 08/08/20 01/14/23 History Potassium Chloride ER [K-Dur 20] 20 meq PO BID 08/08/20 01/14/23 History Rosuvastatin [Crestor] 10 mg PO HS 08/08/20 01/14/23 History Verapamil HCl [Verapamil ER] 120 mg PO DAILY 08/08/20 01/14/23 History Allergies Allergy/AdvReac Type Severity Reaction Status Date / Time egg Allergy Nausea Unverified 01/14/23 15:18 adhesive AdvReac Rash/Hives Unverified 01/14/23 15:18 bupropion [From Zyban] AdvReac Rash/Hives Unverified 01/14/23 15:18 corn AdvReac Nausea Unverified 01/14/23 15:18 Milk Containing Products AdvReac Diarrhea Unverified 01/14/23 15:18 [Dairy] wheat AdvReac Unknown Unverified 01/14/23 15:18 Exam Vital Signs Temp Pulse Resp BP Pulse Ox 01/14/23 15:22 97.9 F 67 17 152/77 98 Intake and Output 01/14/23 01/14/23 01/14/23 06:59 14:59 22:59 Other: Weight 66.224 kg Height 5 feet 5 inches, weight 146 pounds, BMI 24.3. This is a well-developed well-nourished white female who is alert and oriented times 3 in no acute distress. HEENT: Within normal limits. NECK: Supple without mass or thyromegaly. CHEST AND LUNGS: Clear to auscultation. HEART: Regular rate and rhythm. BREASTS: Are without mass or discharge. AXILLARY EXAM: Negative for adenopathy. BACK: Negative for CVA tenderness. ABDOMEN: Soft, nontender, without palpable masses. PELVIC EXAM: External genitalia appears normal with mild to moderate atrophy. Vagina appears normal with mild to moderate atrophy. There is a stable grade 2 rectocele. Bimanual examination is negative for mass or tenderness. RECTAL EXAM: Rectovaginal exam is negative for mass or tenderness and is negative for occult blood. This confirms a grade 2 rectocele. EXTREMITIES: Nontender. IMPRESSION: 1. 62-year-old menopausal female status post vaginal hysterectomy for benign reasons with a stable grade 2 rectocele which is minimally symptomatic. PLAN: 1. Pap smears have been discontinued. 2. Self breast awareness was discussed with the patient. We have also discussed symptoms associated with inflammatory breast cancer. 3. Screening mammogram will be done today. 4. Osteoporosis prevention was discussed. I have stressed the importance of adequate calcium, vitamin D and regular exercise. Recommended amounts of calcium and vitamin D were also discussed. Baseline bone density testing was recommended and the order slip was given to the patient for this. 5. I recommended that she quit smoking. We have discussed many reasons why this is important. She states it has been a very stressful time and she will not plan on quitting in the immediate future. 6. Continue conservative management for the grade 2 rectocele. I have stressed the importance of keeping the stool soft and her bowel movements are regular with adequate fiber. 7. She was advised to return in one year for her annual well woman exam and as needed.
--- NOTE | 2023-01-15 14:48 | MM ---
Reason for Exam: Screening (asymptomatic). Last mammogram was performed 1 year(s) and 4 month(s) ago. Patient History: Menarche at age 11. First Full-Term at age 17. Hysterectomy at age 34. Postmenopausal. 02/10/2013, Benign Cyst Aspiration on the left side. Niece had breast cancer, age 57. Sister had breast cancer, age 56. Risk Values: Becki 5 year model risk: 2.9%. NCI Lifetime model risk: 12.1%. Prior Study Comparison: 05/13/2019 Bilateral Screening Mammogram, [facility]. 05/29/2020 Bilateral Screening Mammogram, [facility]. 09/25/2021 Bilateral Screening Mammogram, [facility]. Tissue Density: The breast tissue is heterogeneously dense. This may lower the sensitivity of mammography. Findings: Analyzed By CAD. Left breast biopsy clips. There is no suspicious group of microcalcifications or new suspicious mass in either breast. Overall Assessment: Negative, BI-RAD 1 Management: Screening Mammogram of both breasts in 1 year. A clinical breast exam by your physician is recommended on an annual basis and results should be correlated with mammographic findings. [facility] will attempt to contact patient to return for supplemental views and ultrasound if indicated. Electronically signed and approved by: Sen Johnson DO
== END ==
LOC: WWCWWP 14:58
PROVIDERS: ATTEND Obstetrics & Gynecology
DX: Z12.31 Encounter for screening mammogram for malignant neoplasm of breast (principal); Z01.419 Encounter for gynecological examination (general) (routine) without abnormal findings; E03.9 Hypothyroidism, unspecified; F17.210 Nicotine dependence, cigarettes, uncomplicated; I10 Essential (primary) hypertension; K21.9 Gastro-esophageal reflux disease without esophagitis; N81.6 Rectocele; Z79.1 Long term (current) use of non-steroidal anti-inflammatories (NSAID); Z79.82 Long term (current) use of aspirin; Z80.0 Family history of malignant neoplasm of digestive organs; Z82.49 Family history of ischemic heart disease and other diseases of the circulatory system; Z87.19 Personal history of other diseases of the digestive system; Z90.49 Acquired absence of other specified parts of digestive tract; Z90.710 Acquired absence of both cervix and uterus; Z91.012 Allergy to eggs; Z91.048 Other nonmedicinal substance allergy status; Z88.6 Allergy status to analgesic agent; Z91.018 Allergy to other foods
CPT/HCPCS: 77063; 77067

== ENCOUNTER → 2023-09-03 | Outpatient (CLI) | payer BC ==
--- NOTE | 2023-09-04 13:17 | CT ---
EXAMINATION TYPE: CT neck chest w con DATE OF EXAM: 09/03/2023 5:33 PM COMPARISON: CT chest 05/07/2019 HISTORY: Lump under right arm pit, growing in size x [address] DLP: 500.3 mGycm Automated exposure control for dose reduction was used. CONTRAST: CT scan of the neck is performed following with IV Contrast, patient injected with 100 cc mL of Isovu e 300. Axial images are obtained, coronal and sagittal reformatted images are reviewed. FINDINGS: NECK: There is a 1 cm left thyroid nodule. Right lobe is not seen may be atrophic. No pathologic-sized supraclavicular lymphadenopathy. No evidence of pathologic adenopathy within the bilateral compartments of the neck. Scattered shotty subcentimeter lymph nodes are identified. Oropharynx and nasopharynx appear to be symmetric. There is asymmetry with soft tissue fullness at th e level of the uvula on the right which should be evaluated with ENT for possible mucosal lesion. Den jacky artifact partially obscures the region. Submandibular and visualized portions of the parotid glands demonstrate no suspicious appearing lesio ns. Hypertrophic and degenerative changes of the spine. Carotid artery atherosclerotic changes with no definite significant stenosis suspected. Intracranial atherosclerotic change most marked involving bilateral cavernous segment ICA. CHEST: There is diffuse advanced emphysematous changes. There is no evidence of focal pneumonia. Groundglass subsegmental changes most typical of atelectasis. There is a 3 mm subpleural nodule left lower lobe axial image 49 series 8. Stable. There is a 5 mm nodule in the left lower lobe axial image 46 series 8. Stable. 2 mm nodule left lower lobe axial image 35 series 8. Stable. There is no evidence of pleural effusion or pneumothorax. Aberrant right subclavian artery can be ass ociated with a vascular ring. Heart size is mildly enlarged. Coronary artery calcification. Aorta measures a maximal dimension 3.3 cm. Mild atherosclerotic changes. Small hiatal hernia. Subcentimeter hypodensity dome of the liver too small to characterize. Numerous additional hypodensities are compatible with simple cysts. Postcholecystectomy changes seen with evid ence of intra and extrahepatic biliary ductal dilation. Likely postsurgical. A retroaortic left renal vein incidentally noted. No pathologic sized adenopathy within the mediastinum or hilum. With respect to the right axilla no pathologic-sized mass. Shotty subcentimeter lymph nodes are seen bilaterally. IMPRESSION: 1. There is soft tissue fullness along the right lateral oropharynx and hypopharynx. Mucosal lesion n ot excluded. As noted above Dental artifact does partially obscure the region. Recommend direct visualization. 2. No evidence of right axillary sizable mass. Subcentimeter lymph nodes are seen. If there is a clin ically palpable lesion would recommend follow-up ultrasound directly over the area of palpable abnorm ality. 3. Diffuse emphysematous changes with multiple sub- 5 mm lower lobe left pulmonary nodules which is t oo small to characterize but stable from prior CT scan of 2019 and therefore felt benign. 4. Congenital aberrant right subclavian artery. 5. There is a 1 cm left thyroid nodule.
== END | disposition home or self-care (01) ==
LOC: RADCTMAIN 16:36
PROVIDERS: ATTEND Family Medicine
DX: Q27.8 Other specified congenital malformations of peripheral vascular system (principal); E04.1 Nontoxic single thyroid nodule; M54.2 Cervicalgia; J43.9 Emphysema, unspecified; M79.89 Other specified soft tissue disorders; R91.8 Other nonspecific abnormal finding of lung field
CPT/HCPCS: 70491; 71260; Q9967

== ENCOUNTER → 2024-04-06 | Outpatient (CLI) | payer BC ==
[2024-04-06 14:28] VITALS: BP 150/73; PULSE 79; RESP 16; TEMP 98.1
--- NOTE | 2024-04-06 14:59 | P.HPOB ---
History of Present Illness H&P Date: 04/06/24 Chief Complaint: The patient is here for her routine gynecologic exam and ma mmogram. This is a 63-year-old -0-2-3 with an LMP of 1995. The patient is status post vaginal hysterectomy for benign reasons. She has a known grade 2 rectocele. She denies any significant problems with this. She is without gynecologic complaints. Review of Systems The patient has gained 8 pounds over the last year. This is after losing more than 50 pounds about 2 years ago. She denies respiratory, cardiac, or G.I. problems. Past Medical History Past Medical History: GERD/Reflux, Hypertension, Thyroid Disorder Additional Past Medical History / Comment(s): Seasonal ALLERGIES and hypothyroidism. 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 History of Any Multi-Drug Resistant Organisms: None Reported Past Surgical History: Cholecystectomy, Hysterectomy, Tubal Ligation Additional Past Surgical History / Comment(s): Multiple D&Cs, vaginal hysterectomy 1995, hemorrhoid surgery, thyroidectomy. Colonoscopy 2018(next after 2yr). Past Psychological History: Anxiety Smoking Status: Current some day smoker Past Alcohol Use History: Occasional Past Drug Use History: None Reported - Past Family History Father Family Medical History: Cancer Additional Family Medical History / Comment(s): Colon cancer. Mother Family Medical History: Cancer, Hypertension, Myocardial Infarction ([place]) Additional Family Medical History / Comment(s): Uterine cancer. Sister(s) Additional Family Medical History / Comment(s): Heart disease. Medications and Allergies Home Medications Medication Instructions Recorded Confirmed Type Aspirin 81 mg PO DAILY 08/08/20 04/06/24 History Cetirizine HCl [Zyrtec] 10 mg PO DAILY 08/08/20 04/06/24 History Enalapril/Hydrochlorothiazide 1 tab PO DAILY 08/08/20 04/06/24 History [Enalapril/Hydrochlorothiazide 10-25 mg Tablet] Levothyroxine Sodium [Synthroid] 50 mcg PO DAILY 08/08/20 04/06/24 History Meloxicam [Mobic] 7.5 mg PO BID 08/08/20 04/06/24 History Montelukast [Singulair] 10 mg PO DAILY 08/08/20 04/06/24 History Omeprazole 20 mg PO DAILY 08/08/20 04/06/24 History Potassium Chloride ER [K-Dur 20] 20 meq PO BID 08/08/20 04/06/24 History Rosuvastatin [Crestor] 10 mg PO HS 08/08/20 04/06/24 History Verapamil HCl [Verapamil ER] 120 mg PO DAILY 08/08/20 04/06/24 History Allergies Allergy/AdvReac Type Severity Reaction Status Date / Time egg Allergy Nausea Unverified 04/06/24 14:24 adhesive AdvReac Rash/Hives Unverified 04/06/24 14:24 bupropion [From Zyban] AdvReac Rash/Hives Unverified 04/06/24 14:24 corn AdvReac Nausea Unverified 04/06/24 14:24 Milk Containing Products AdvReac Diarrhea Unverified 04/06/24 14:24 (Dairy) [Dairy] wheat AdvReac Unknown Unverified 04/06/24 14:24 Exam Vital Signs Temp Pulse Resp BP Pulse Ox 04/06/24 14:25 98.1 F 79 16 150/73 97 Intake and Output 04/05/24 04/06/24 04/06/24 22:59 06:59 14:59 Other: Weight 69.853 kg Height 5 feet 6 inches, weight 154 pounds, BMI 24.9. This is a well-developed well-nourished white female who is alert and oriented times 3 in no acute distress. HEENT: Within normal limits. NECK: Supple without mass or thyromegaly. CHEST AND LUNGS: Clear to auscultation. HEART: Regular rate and rhythm. BREASTS: Are without mass or discharge. AXILLARY EXAM: Negative for adenopathy. BACK: Negative for CVA tenderness. ABDOMEN: Soft, nontender, without palpable masses. PELVIC EXAM: External genitalia appears normal with mild atrophy. Vagina appears normal with mild atrophy. There is a stable grade 2 rectocele without evidence of an enterocele. Bimanual examination is negative for mass or tenderness. RECTAL EXAM: Rectovaginal exam is negative for mass or tenderness and is negative for occult blood. EXTREMITIES: Nontender. IMPRESSION: 1. 63-year-old menopausal female status post vaginal hysterectomy for benign reasons, with stable asymptomatic grade 2 rectocele. 2. History of osteopenia. PLAN: 1. Pap smears have been discontinued. 2. Self breast awareness was discussed with the patient. We have also discussed symptoms associated with inflammatory breast cancer. 3. Screening mammogram will be done today. 4. Osteoporosis prevention was discussed. I have stressed the importance of adequate calcium, vitamin D and regular exercise. Recommended amounts of calcium and vitamin D were also discussed. Her last bone density test was done on 02/11/2023. Will plan on repeating this next year. 5. Continue conservative management for the rectocele. She is to avoid holding stool longer than necessary. 6. She was advised to return in one year for her annual well woman exam.
== END | disposition home or self-care (01) ==
LOC: WWCWWP 14:00
PROVIDERS: ATTEND Obstetrics & Gynecology
DX: Z12.31 Encounter for screening mammogram for malignant neoplasm of breast (principal); M85.80 Other specified disorders of bone density and structure, unspecified site; N81.6 Rectocele; F17.200 Nicotine dependence, unspecified, uncomplicated; Z78.0 Asymptomatic menopausal state; Z90.710 Acquired absence of both cervix and uterus; Z91.012 Allergy to eggs; Z91.048 Other nonmedicinal substance allergy status; Z88.8 Allergy status to other drugs, medicaments and biological substances; Z91.018 Allergy to other foods; Z91.011 Allergy to milk products
CPT/HCPCS: 77063; 77067

== ENCOUNTER 2025-01-10 16:43 | Emergency (ER) | payer BC ==
[2025-01-10 16:50] VITALS: RESP 20
--- NOTE | 2025-01-10 17:10 | ED ---
Female Urogenital HPI - General Chief complaint: Urogenital Stated complaint: Urogenital Time Seen by Provider: 01/10/25 16:52 Source: patient, RN notes reviewed, old records reviewed Mode of arrival: ambulatory Limitations: no limitations - History of Present Illness Initial comments: This is a 64 female the ER for evaluation presents today for evaluation in regards to dysuria persistent dysuria with recent urinary tract infection diagnosis, was called today due to antibiotic resistance of antibiotic that she was prescribed and presents to ER for antibiotic treatment. Patient does have studies and culture studies as well as sensitivity of prior urinalysis, patient currently is on Macrobid, complaining of mild right flank pain MD Complaint: dysuria, other (Right flank pain) -: days(s) Severity: mild Severity scale (1-10): 2 Quality: sharp Consistency: intermittent Improves with: none Worsens with: urination Patient : No - Related Data Sexually active: No Home Medications Medication Instructions Recorded Confirmed Enalapril/Hydrochlorothiazide 2 tab PO DAILY 08/08/20 01/10/25 [Enalapril/Hydrochlorothiazide 10-25 mg Tablet] Levothyroxine Sodium [Synthroid] 50 mcg PO DAILY 08/08/20 01/10/25 Meloxicam [Mobic] 7.5 mg PO BID 08/08/20 01/10/25 Montelukast [Singulair] 10 mg PO HS 08/08/20 01/10/25 Potassium Chloride ER [K-Dur 20] 20 meq PO BID 08/08/20 01/10/25 Rosuvastatin [Crestor] 10 mg PO HS 08/08/20 01/10/25 Verapamil HCl [Verapamil ER] 120 mg PO DAILY 08/08/20 01/10/25 Nitrofurantoin Monohyd/M-Cryst 100 mg PO Q12HR 01/10/25 01/10/25 [Macrobid] Previous Rx's Medication Instructions Recorded Ciprofloxacin HCl [Cipro] 500 mg PO Q12HR 14 Days #28 tab 01/10/25 Allergies Allergy/AdvReac Type Severity Reaction Status Date / Time egg Allergy Nausea Verified 01/10/25 17:25 adhesive AdvReac Rash/Hives Verified 01/10/25 17:25 bupropion [From Zyban] AdvReac Rash/Hives Verified 01/10/25 17:25 corn AdvReac Nausea Verified 01/10/25 17:25 Milk Containing Products AdvReac Diarrhea Verified 01/10/25 17:25 (Dairy) [Dairy] wheat AdvReac GI UPSET Verified 01/10/25 17:25 Review of Systems ROS Statement: Those systems with pertinent positive or pertinent negative responses have been documented in the HPI. ROS Other: All systems not noted in ROS Statement are negative. Past Medical History Past Medical History: GERD/Reflux, Hypertension, Thyroid Disorder Additional Past Medical History / Comment(s): Seasonal ALLERGIES and hypothyroidism. PAST RESERVATIONIST HISTORY: She has no history of STDs. History of Any Multi-Drug Resistant Organisms: None Reported Past Surgical History: Cholecystectomy, Hysterectomy, Tubal Ligation Additional Past Surgical History / Comment(s): Multiple D&Cs, vaginal hysterectomy 1995, hemorrhoid surgery, thyroidectomy. Colonoscopy 2018(next after 2yr). Past Psychological History: Anxiety Smoking Status: Current some day smoker Past Alcohol Use History: Occasional Past Drug Use History: None Reported - Past Family History Father Family Medical History: Cancer Additional Family Medical History / Comment(s): Colon cancer. Mother Family Medical History: Cancer, Hypertension, Myocardial Infarction (PR) Additional Family Medical History / Comment(s): Uterine cancer. Sister(s) Additional Family Medical History / Comment(s): Heart disease. General Exam Limitations: no limitations General appearance: alert, in no apparent distress Head exam: Present: atraumatic, normocephalic, normal inspection Eye exam: Present: normal appearance, PERRL, EOMI. Absent: scleral icterus, conjunctival injection, periorbital swelling ENT exam: Present: normal exam, mucous membranes moist Neck exam: Present: normal inspection. Absent: tenderness, meningismus, lymphadenopathy Respiratory exam: Present: normal lung sounds bilaterally. Absent: respiratory distress, wheezes, rales, rhonchi, stridor Cardiovascular Exam: Present: regular rate, normal rhythm, normal heart sounds. Absent: systolic murmur, diastolic murmur, rubs, gallop, clicks GI/Abdominal exam: Present: soft, normal bowel sounds. Absent: distended, tenderness, guarding, rebound, rigid Extremities exam: Present: normal inspection, full ROM, normal capillary refill. Absent: tenderness, pedal edema, joint swelling, calf tenderness Back exam: Present: normal inspection Neurological exam: Present: alert, oriented X3, CN II-XII intact Psychiatric exam: Present: normal affect, normal mood Skin exam: Present: warm, dry, intact, normal color. Absent: rash Course Vital Signs 01/10/25 16:47 Temperature 97.6 F Pulse Rate 78 Respiratory 20 Rate Blood Pressure 188/80 O2 Sat by Pulse 98 Oximetry - Reevaluation(s) Reevaluation #1: 01/10/25 17:29 Medical records reviewed Patient does provide culture and sensitivity from prior urinalysis here in the emergency department This is reviewed and appropriate antibiotic will be prescribed Patient has no drug allergies Reevaluation #2: 01/10/25 17:30 Patient has no change in symptoms Reevaluation #3: 01/10/25 17:30 Patient informed of results and questions answered Reevaluation #4: Was pt. sent in by a medical professional or institution (CLYDE Celaya, ANALYST, urgent care, hospital, or residential...) When possible be specific @ -no Did you speak to anyone other than the patient for history (EMS, parent, family, police, friend...)? What history was obtained from this source @ -no Did you review nursing and triage notes (agree or disagree)? Why? @ -agree Are old charts reviewed (outside hosp., previous admission, EMS record, old EKG, old radiological studies, urgent care reports/EKG's, residential records)? Report findings @ -yes Differential Diagnosis (chest pain, altered mental status, abdominal pain women, abdominal pain men, vaginal bleeding, weakness, fever, dyspnea, syncope, headache, dizziness, GI bleed, back pain, seizure, CVA, palpatations, mental health, musculoskeletal)? @ -prior EKG interpreted by me (3pts min.). @ -yes X-rays interpreted by me (1pt min.). @ -yes negative for acute disease CT interpreted by me (1pt min.). @ -no U/S interpreted by me (1pt. min.). @ -no What testing was considered but not performed or refused? (CT, X-rays, U/S, labs)? Why? @ -none What meds were considered but not given or refused? Why? @ -none Did you discuss the management of the patient with other professionals (professionals i.e. CLYDE Celaya, ANALYST, lab, RT, psych nurse, social sciences instructor, podiatric medicine doctor, teacher, field artillery officer, case finishing machine adjuster)? Give summary @ -no Was smoking cessation discussed for >3mins.? @ -no Was critical care preformed (if so, how long)? @ -no Were there social determinants of health that impacted care today? How? (Homelessness, low income, unemployed, alcoholism, drug addiction, transportation, low edu. Level, literacy, decrease access to med. care, residential, rehab)? @ -none Was there de-escalation of care discussed even if they declined (Discuss DNR or withdrawal of care, Hospice)? DNR status @ -no What co-morbidities impacted this encounter? (DM, HTN, Smoking, COPD, CAD, Cancer, CVA, ARF, Chemo, Hep., AIDS, mental health diagnosis, sleep apnea, morbid obesity)? @ -none Was patient admitted / discharged? Hospital course, mention meds given and route, prescriptions, significant lab abnormalities, going to OR and other pertinent info. @ - Undiagnosed new problem with uncertain prognosis? @ -no Drug Therapy requiring intensive monitoring for toxicity (Heparin, Nitro, Insulin, Cardizem)? @ -no Were any procedures done? @ -no Diagnosis/symptom? @ - Acute, or Chronic, or Acute on Chronic? @ -Acute Uncomplicated (without systemic symptoms) or Complicated (systemic symptoms)? @ -Complicated Side effects of treatment? @ -no Exacerbation, Progression, or Severe Exacerbation? @ -exacerbation Poses a threat to life or bodily function? How? (Chest pain, [place], PR, pneumonia, PE, COPD, DKA, ARF, appy, cholecystitis, CVA, Diverticulitis, Homicidal, Suicidal, threat to staff... and all critical care pts) @ -yes Reevaluation #5: Differential Abdominal Pain Women: Appendicitis, Cholecystitis, diverticulosis, ischemic bowel, pancreatitis, hepatitis, UTI, gastroenteritis, AAA, incarcerated hernia, bowel obstruction, constipation, inflammatory bowel, hepatitis, peptic ulcer disease, splenic infarction, perforated viscus, vulvitis, ovarian torsion, PID, kidney stone, placenta abruption, this is not meant to be an all-inclusive list Medical Decision Making - Medical Decision Making 64 female to ER with urinary tract infection on resistant antibiotic. Patient prescribed antibiotic that will cover symptoms, 2 weeks secondary to likely pyelonephritis with right flank pain. Right costophrenic tenderness. Patient at this time is able to tolerate oral intake no nausea vomiting can be discharged home Disposition Clinical Impression: Cystitis, Urinary tract infection, Pyelonephritis Disposition: HOME SELF-CARE Condition: Good Instructions (If sedation given, give patient instructions): Urinary Tract Inf ection in Women (ED), Kidney Infection (ED) Prescriptions: Ciprofloxacin HCl [Cipro] 500 mg PO Q12HR 14 Days #28 tab Is patient prescribed a controlled substance at d/c from ED?: No Referrals: Hugh Corcoran MD [Primary Care Provider] - 1-2 days Time of Disposition: 17:00
[2025-01-10] MEDS: CIPROFLOXACIN HCL 500 MG TAB PO STA (17:17)
[2025-01-10 17:33] VITALS: BP 170/82; PULSE 80; TEMP 98
[2025-01-10 19:04] LABS: Appearance,Urine Clear (Clear); Bilirubin,Urine Negative (Negative); Blood,Urine Negative (Negative); Color,Urine Light Yellow; Glucose,Urine (UA) Negative (Negative); Ketones,Urine Negative (Negative); Leukocyte Esterase,Urine Negative (Negative); Nitrite,Urine Negative (Negative); PH, Urine 7.5 (5.0-8.0); Protein,Urine Negative (Negative); Specific Gravity,Urine 1.004 (1.001-1.035); Urobilinogen,Urine <2.0 mg/dL (<2.0)
== END 2025-01-10 17:43 | disposition home or self-care (01) ==
LOC: EC 16:43
DX: N30.90 Cystitis, unspecified without hematuria (principal); N12 Tubulo-interstitial nephritis, not specified as acute or chronic; F17.200 Nicotine dependence, unspecified, uncomplicated; Z88.5 Allergy status to narcotic agent; Z91.09 Other allergy status, other than to drugs and biological substances; Z91.011 Allergy to milk products; Z91.012 Allergy to eggs; Z91.018 Allergy to other foods
CPT/HCPCS: 81003; 99283

== ENCOUNTER → 2025-02-01 | Outpatient (CLI) | payer BC ==
[2025-02-01 23:31] LABS: Cryptosporidium Antigen Negative (Negative)
== END | disposition home or self-care (01) ==
LOC: LABWHC1 13:53
PROVIDERS: ATTEND Physician Assistant
DX: K52.9 Noninfective gastroenteritis and colitis, unspecified (principal)
CPT/HCPCS: 36415; 83993; 87328; 87329